=== PATIENT | female | born 1945 | race Caucasian/White ===

== ENCOUNTER 2022-11-12 07:39 | Inpatient (IN) ==
--- NOTE | 2022-10-06 12:05 | PAT Medication Instructions ---
Medication Instructions Date of Service October 06, 2022 Home Medications duloxetine 30 mg capsule,delayed release 30 mg PO QPM evolocumab 140 mg/mL subcutaneous pen injector (Repatha SureClick) 140 mg subcut UD fluticasone furoate 100 mcg-vilanterol 25 mcg/dose inhalation powder (Breo El lipta) 1 inh inhalation QPM gabapentin 100 mg capsule 100 mg PO HS metoprolol tartrate 25 mg tablet 12.5 mg PO QAM metoprolol tartrate 25 mg tablet 25 mg PO HS prasugrel 10 mg tablet 10 mg PO QAM ASK your surgeon for instructions evolocumab 140 mg/mL subcutaneous pen injector (Repatha SureClick) 140 mg subcut UD prasugrel 10 mg tablet 10 mg PO QAM Take morning of surgery With a small sip of water, OTHERWISE NOTHING TO EAT OR DRINK AFTER MIDNIGHT: metoprolol tartrate 25 mg tablet 12.5 mg PO QAM Take evening before surgery duloxetine 30 mg capsule,delayed release 30 mg PO QPM fluticasone furoate 100 mcg-vilanterol 25 mcg/dose inhalation powder (Breo Ellipta) 1 inh inhalation QPM gabapentin 100 mg capsule 100 mg PO HS metoprolol tartrate 25 mg tablet 25 mg PO HS Other Notes If you have any questions please call us at [phone] or [phone] or [phone] or [phone]
--- NOTE | 2022-10-10 13:18 | Anesthesiology Consultation ---
Date of Service October 10, 2022 Assessment & Plan (1) Encounter for pre-operative examination: - will request most recent cardiology records including available testing. Dr. 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 Patient was contacted by myself and states she sees [facility] cardiology, Dr. Haywood. Noted abnormal 2020 stress echo. - PONV: pt reports having received scop patch in the past. To anesthesiologist determination if scop patch is acceptable for patient DOS. Chart Review Chart Review: Pending: Refer to Additional Notes / Consult section and Patient seen in Pre Admission Testing Teaching & Discussion Pre-Anesthesia Teaching/Discussion Notes: Instructed NPO after midnight before surgery, except medications with 15 cc of water. Medication instructions provided according to the PAT guidelines. History Surgery Operation Date: 11/12/22 09:50 Proposed Procedures p Aortogram with Aortic and Iliac Stenting - Alex Santos MD Height/Weight Height: 5 ft 2 in Weight: 63.9 kg Allergies Allergy/AdvReac Type Severity Reaction Status Date / Time aspirin Allergy Intermediate Hives Verified 10/02/22 13:53 codeine Allergy Intermediate hyperventilate, Verified 10/02/22 13:53 "cant get my breath" Medications Home Medications Medication Instructions Recorded Confirmed Last Taken duloxetine 30 mg capsule,delayed 30 mg PO QPM 10/02/22 10/02/22 Unknown release evolocumab 140 mg/mL subcutaneous 140 mg subcut UD 10/02/22 10/02/22 Unknown pen injector (Repatha SureClick) fluticasone furoate 100 1 inh inhalation QPM 10/02/22 10/02/22 Unknown mcg-vilanterol 25 mcg/dose inhalation powder (Breo Ellipta) gabapentin 100 mg capsule 100 mg PO HS 10/02/22 10/02/22 Unknown metoprolol tartrate 25 mg tablet 12.5 mg PO QAM 10/02/22 10/02/22 Unknown metoprolol tartrate 25 mg tablet 25 mg PO HS 10/02/22 10/02/22 Unknown prasugrel 10 mg tablet 10 mg PO QAM 10/02/22 10/02/22 Unknown Past Medical History Medical History (Updated 10/10/22 @ 13:21 by Liana Perea PA-C) Anemia Atrial fibrillation follows with Dr. Agueda Pelaez with [facility] CAD (coronary artery disease) s/p 3 stents, most recent more than 2 yrs ago Chronic back pain Chronic obstructive pulmonary disease controlled, stable per pt; maintenance inhaler, denies any recent albuterol inhaler use History of blood transfusion History of COVID-19 03/2022--mild symptoms, denies hospitalization, no symptoms now Hypertension controlled, stable per pt Nausea and vomiting after administration of anesthetic agent pt believes did have scop patch in the past in combination with IV medication Pulmonary embolism after knee surgery---reason for prasugrel Patient denies h/o stroke, seizures, heart attack, heart failure, or DM. Exercise / Class Metabolic Activity III < 4 Walking/Shop/Light housework (denies chest discomfort or shortness of breath with usual activities) Past Family History Family History Other No family history of adverse response to anesthesia Past Surgical History Surgical History History of benign breast biopsy History of bilateral carpal tunnel release History of bilateral cataract extraction History of cardiac cath x2--last was at least 3yrs--all at [facility] History of cholecystectomy History of colonoscopy History of esophagogastroduodenoscopy (EGD) History of foot surgery right History of heart artery stent x3 total--1 placed years ago, 2 placed last pt unsure when states at least 3+yrs ago was last time History of lumbar discectomy History of right knee surgery History of tonsillectomy and adenoidectomy History of tooth extraction History of total hysterectomy with bilateral salpingo-oophorectomy (BSO) Past Anesthesia History No Hx of Anesthesia Complications and No Family Hx of Anesthesia Complications History of PONV History of PONV (has received scop patch in the past in combination with IV medication) and Hx of Motion Sickness Social History Smoking Status: Current every day smoker tobacco type: cigarettes Smoking cigarettes per day: 10 a day (advised) Do You Dip or Chew Tobacco: No Hx Alcohol Use: Yes Alcohol type: wine alcohol intake frequency: 0-2 drinks per day Hx Substance Use: No substance use type: does not use Review of Systems Snoring, denies witnessed apneas. Patient denies chest pain, shortness of breath, dyspnea on exertion, reflux, fever, chills, cough, wheezing, or palpitations. Physical Exam Vital Signs Vitals BP 114/78 manual L arm P 58 TEMP 98 SP02 96% on RA RESP 17 Physical Full cervical extension range of motion without pain TMD 3.5 finger breadths Mallampati Score 2 Dentition: implant front left upper, denies chipped or loose teeth, caps/crowns, or bridges Lungs: normal respiratory effort. Good air movement, clear throughout to auscultation, no adventitious breath sounds Cardiac: regular rate and rhythm, no murmurs noted Carotid arteries: negative bruit bilat Lab Results Anesthesia Preop Results Results Anesthesia Widget: WBC 8.38 K/ul (4.8-10.8) 10/10/22 Hgb 15.4 g/dl (12.0-16.0) 10/10/22 Hct 45.2 % (37.0-47.0) 10/10/22 Plt 251 K/uL (130-400) 10/10/22 Na 136 mmol/L (136-145) 10/10/22 K 4.9 mmol/L (3.5-5.1) 10/10/22 Cl 101 mmol/L (98-107) 10/10/22 CO2 28 mmol/L (21-32) 10/10/22 BUN 5 mg/dl (6-23) L 10/10/22 Creat 0.68 mg/dl (0.6-1.2) 10/10/22 Glucose Level 114 mg/dl (70-99(Fasting)) H 10/10/22 PT 11.0 Seconds (9.0-12.0) 10/10/22 PTT 26.2 Seconds (21.0-31.0) 10/10/22 INR 1.0 (0.9-1.1) 10/10/22 Blood Type O Negative 10/10/22 Antibody Screen POSITIVE A 10/10/22 Testing Laboratory Results July with blood bank advised nothing additional is needed from pt or PAT regarding positive antibody screen. Electrocardiogram Date: 10/10/22 Sinus bradycardia, rate 55 bpm Rightward axis Cannot rule out anterior infarct, age undetermined Chest X-Ray Date: 10/10/22 No acute process Echocardiogram Date: 05/09/22 EF 50-55% Mild to moderate mitral regurgitation ARGELIA closure device Watchman with no device related thrombus or peridevice leak Stress Test Date: 10/22/19 MPHR 48% Moderate sized, moderate intensity perfusion abnormality in the mid to apical anterior and anteroseptal wall with reversibility, consistent with ischemia in the LAD coronary artery distribution Other Testing Aorta with runoff CTA 09/16/22 1. Focal area of stenosis within the distal abdominal aorta of up to 75% due to the calcified plaque. 2. Focal area of high-grade stenosis within the proximal right common iliac artery of likely greater than 90% due to the calcified plaque. 3. Mild multifocal narrowing within the right common femoral, superficial femoral, and right popliteal arteries. 4. The distal right anterior tibial and dorsalis pedis arteries are not opacified and likely occluded. 5. The distal left posterior tibial artery is not opacified and likely occluded. 6. Additional findings as described above. COVID-19 Risk Screen Screening Information COVID-19 Screen Date: 10/10/22 Exposure 21 Days Family/Household +COVID Last 21 Days: No Exposure 10 Days Any COVID Exposure Last 10 Days: No Symptoms Last 10 Days Experienced COVID Sx Last 10 Days: No + COVID 0-90 Days COVID + in Last 0-90 Days: No
[~2022-11-12 07:39] MED LIST: LR 15ML/HR IV SCH; ceFAZolin 2000MG 2,000 MG/15 ML SYR IV SCH
--- NOTE | 2022-11-12 08:12 | History & Physical Report ---
Date of Service November 12, 2022 History of Present Illness Primary Care Provider: Grant Mcfadden Reason for Consultation Right upper extremity vascular occlusive disease and lower extremity right leg claudication History of Present Illness I the pleasure of seeing Devora today for evaluation of her arterial system. As you know she is a 76-year-old female who has complaints of both upper and lower extremities. She claims that her right hand occasionally gets purplish in the fingers. This has not happened over the last few weeks. She denies any ulcerations of the right hand. She is right-handed. She denies any effort discomfort with use of the right upper extremity. She has had episodes where she gets tingly, cold, and passes out. This also has not occurred recently. She claims that she did go on antibiotics for mastoiditis which helped with this problem. She does claim that her pulses in her right arm have been difficult to feel for extended period of time. She denies any symptoms consistent with cerebrovascular accidents. She does also complain of right leg pain. This occurs both at rest and while walking however the pain she gets when walking is different than the one at rest. She is claims she does not walk far distances before her lower extremity hurts. She does point to the calf is being replaced this starts but involves the whole leg. She denies any ulcerations of the lower extremities. She denies any pain in her left lower extremity. She does have a chronic history of smoking and continues to smoke. She does have a history of hypertension and coronary artery disease with requiring 3 stents. Review of Systems 10 systems were reviewed. Positive findings included occasional chest pain and irregular heartbeat COPD joint swelling loss of appetite and diarrhea and urinary incontinence. She does have a history of 3 coronary stents in the past. She also has a history of mild carotid artery occlusive disease. Physical Exam Vitals & Measurements HR: 72 (Monitored) BP: 122/76 SpO2: 72% WT: 62.800 kg (Dosing) WT: 62.8 kg Input and Output - Last 24 hours (Last 8 hours) No I/O Data Found: On exam the patient is awake alert and oriented x3. She is in no apparent distress. Her blood pressure is 158/78 on the left and 122/76 on the right arm. Radials are +2 on the left and nonpalpable on the right. Capillary refill is equal in both upper extremities. There is no ulcerations of the hand and fingers of either upper extremity. I cannot appreciate any carotid bruits on exam. Her heart had a regular rate and rhythm. Abdominal exam was benign without any abnormal dilatation of the aorta. Femoral pulses 1+ on the right 2+ on the left. The left pedal pulses are palpable and normal. Right pedal pulse palpable. Neurologic exam is normal to motor and sensory fu nction. Diagnostic Results CT angiogram which was done in June showed mild stenosis of the brachiocephalic trunk as well as the right common carotid artery. Assessment/Plan Claudication, intermittent At this point is recommended stenting of both the aortic lesion and iliac lesion. Required placed kissing stents in both iliac arteries at the origin of the right, asymptomatic. She understands the risks options and benefits of this approach and agrees with this procedure. We will keep you informed as to her results. Thank you very much for letting us participate in the care of this patient. Sincerely, Isi Santos MD Allergies Allergy/AdvReac Type Severity Reaction Status Date / Time aspirin Allergy Intermediate Hives Verified 10/02/22 13:53 codeine Allergy Intermediate hyperventilate, Verified 10/02/22 13:53 "cant get my breath" clopidogrel [From Plavix] Allergy Rash Verified 11/09/22 10:21 Home Medications Medication Instructions Recorded Confirmed Type duloxetine 30 mg capsule,delayed 30 mg PO QPM 10/02/22 10/02/22 History release evolocumab 140 mg/mL subcutaneous 140 mg subcut UD 10/02/22 10/02/22 History pen injector (Gilda Dale) fluticasone furoate 100 1 inh inhalation QPM 10/02/22 10/02/22 History mcg-vilanterol 25 mcg/dose inhalation powder (Breo Ellipta) gabapentin 100 mg capsule 100 mg PO HS 10/02/22 10/02/22 History metoprolol tartrate 25 mg tablet 12.5 mg PO QAM 10/02/22 10/02/22 History metoprolol tartrate 25 mg tablet 25 mg PO HS 10/02/22 10/02/22 History prasugrel 10 mg tablet 10 mg PO QAM 10/02/22 10/02/22 History Past Med/Surg History Medical History (Updated 10/10/22 @ 13:21 by Liana M. Onink, PA-C) Anemia Atrial fibrillation follows with Dr. Agueda Pelaez with [facility] CAD (coronary artery disease) s/p 3 stents, most recent more than 2 yrs ago Chronic back pain Chronic obstructive pulmonary disease controlled, stable per pt; maintenance inhaler, denies any recent albuterol inhaler use History of blood transfusion History of COVID-19 03/2022--mild symptoms, denies hospitalization, no symptoms now Hypertension controlled, stable per pt Nausea and vomiting after administration of anesthetic agent pt believes did have scop patch in the past in combination with IV medication Pulmonary embolism after knee surgery---reason for prasugrel Surgical History History of benign breast biopsy History of bilateral carpal tunnel release History of bilateral cataract extraction History of cardiac cath x2--last was at least 3yrs--all at [facility] History of cholecystectomy History of colonoscopy History of esophagogastroduodenoscopy (EGD) History of foot surgery right History of heart artery stent x3 total--1 placed years ago, 2 placed last pt unsure when states at least 3+yrs ago was last time History of lumbar discectomy History of right knee surgery History of tonsillectomy and adenoidectomy History of tooth extraction History of total hysterectomy with bilateral salpingo-oophorectomy (BSO) Family History Other No family history of adverse response to anesthesia Social History Smoking Status: Current every day smoker Cigarettes Per Day: 10 a day (advised); Second Hand Exposure: No; Do You Dip or Chew Tobacco: No; Tobacco Cessation Education Requested by Patient: No Hx Alcohol Use: Yes Alcohol type: wine Hx Substance Use: No Preferred Language: Danish Communication Ability: Effective Mobile Disc Jockey Required: No Beliefs That Will Affect Care: None Current Living Situation: Alone Current Living Situation Comment: lives in apartment underneath daughter/son in law Other Information That Helps Us Care for You: No Feels Safe at Home: Yes Safety Concerns: Feels Safe At This Time Assistive Devices: Glasses Assistive Devices Comment: reading glasses
[2022-11-12] MEDS ORDERED: fentaNYL citrate PF 100 MCG/2 ML VIAL ONE (08:32)
[2022-11-12] MEDS ORDERED: ONDANSETRON INJ 2 MG/ML 2 ML VIAL IV PRN (09:13)
[2022-11-12] MEDS ORDERED: fentaNYL citrate PF 100 MCG/2 ML VIAL IV PRN (09:13)
[2022-11-12] MEDS ORDERED: ATROPINE SULFATE 0.1 MG/ML 10ML SYR IV PRN (09:13)
[2022-11-12] MEDS ORDERED: HYDROmorphone INJ 2 MG/ML SYR/VIAL IV PRN (09:13)
[2022-11-12] MEDS ORDERED: ePHEDrine sulfate 50 MG/ML AMP IV PRN (09:13)
[2022-11-12] MEDS ORDERED: SCOPOLAMINE 1 MG TDSY TD ONE (09:51)
[2022-11-12] MEDS ORDERED: ONDANSETRON INJ 2 MG/ML 2 ML VIAL ONE (11:22)
[2022-11-12] MEDS ORDERED: ePHEDrine sulfate 50 MG/ML AMP ONE (11:22)
[2022-11-12] MEDS ORDERED: DEXAMETHASONE SOD INJ 4 MG/ML VIAL ONE (11:22)
[2022-11-12] MEDS ORDERED: PROPOFOL IV EMULSION 10 MG/ML 20 ML VIAL IV ONE (11:22)
[2022-11-12] MEDS ORDERED: HEPARIN SOD (PORCINE) 1000 UNIT/ML ONE ×2 (12:07→13:29)
[2022-11-12] MEDS: VISIPAQUE IV PRN ×2 (12:32→12:33)
[2022-11-12] MEDS ORDERED: ceFAZolin 330 MG/ML 1 GM VIAL ONE (12:39)
[2022-11-12] MEDS ORDERED: PAPAVERINE HCL INJ 30 MG/ML 2 ML VIAL ONE (12:39)
[2022-11-12] MEDS ORDERED: HEPARIN (PORCINE) 1000 UNIT/ML 10 ML (CATH LAB USE ONLY) ONE (12:39)
[2022-11-12] MEDS ORDERED: THROMBIN FOR SOLN 20000 UNIT KIT ONE (12:40)
[2022-11-12] MEDS ORDERED: GELATIN SPONGE SZ 100 ONE (12:40)
[2022-11-12] MEDS ORDERED: PROTAMINE SULFATE 10 MG/ML 5 ML VIAL IV ONE (13:29)
--- NOTE | 2022-11-12 14:01 | Post Operative Brief Note ---
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
--- NOTE | 2022-11-12 14:07 | Anesthesiology Progress Note ---
Date of Service November 12, 2022 Anesthesia Post Procedure Vital Signs Vital Signs: Temp Pulse Resp BP Pulse Ox O2 Del Method 11/12/22 08:22 Room Air 11/12/22 08:22 36.4 C L 54 L 20 176/88 H 96 Room Air Transfer of Care Handoff Completed per policy Notes Mental Status: alert / awake / arousable and participated in evaluation Patient Amnestic to Procedure: Yes Nausea / Vomiting: adequately controlled Pain: adequately controlled Airway Patency, RR, SpO2: stable & adequate BP & HR: stable & adequate Hydration State: stable & adequate Anesthetic Complications: no major complications apparent and Pt Satisfied with anesthetic care
[2022-11-12] MEDS ORDERED: MoRPHine SULFATE 4 MG/ML 1 ML CARP\\VIAL IV PRN (15:04)
[2022-11-12] MEDS: D5W AND 1/2NSS 1,000 ML IV SCH ×2 (15:15→22:50)
[2022-11-12 15:54] LABS: Hematocrit (blood only) 41.2 % (37.0-47.0); Hemoglobin 14.2 g/dl (12.0-16.0); Mean Corpuscular Hemoglobin 31.7 pg (25.0-34.0); Mean Corpuscular Hgb Conc 34.5 g/dL (32.0-36.0); Mean Platelet Volume 8.6 fL (9.4-12.4); Platelet Count 211 K/uL (130-400); RDW Coefficient of Variation 13.1 % (11.5-14.5); Red Blood Count 4.48 M/uL (4.20-5.40); White Blood Count 12.62 K/ul (4.8-10.8)
[2022-11-12] MEDS: oxyCODONE/ACETAMINOPHEN 5mg/325mg TAB PO PRN (16:26)
[2022-11-12 16:46] LABS: Basophils # (auto) 0.02 K/uL (0-0.2); Basophils % (auto) 0.2 %; Eosinophils # (auto) 0.02 K/uL (0-0.50); Eosinophils % (auto) 0.2 %; Immature Granulocytes # (auto) 0.11 K/uL (0.01-0.20); Immature Granulocytes % (auto) 0.9 %; Lymphocytes # (auto) 0.42 K/uL (1.2-3.4); Lymphocytes % (auto) 3.3 %; Monocytes % (auto) 0.8 %; Neutrophils # (auto) 11.95 K/uL (1.40-6.50); Neutrophils % (auto) 94.6 %
--- NOTE | 2022-11-12 19:46 | Critical Care Consultation ---
Date of Consultation November 12, 2022 Assessment & Plan (1) PAD (peripheral artery disease): (2) CAD (coronary artery disease): (3) Chronic obstructive pulmonary disease: (4) Hypertension: (5) Current smoker: Plan Reason Critically Ill: POD # -0 from bilateral aortic/iliac stenting with bilateral fem to fem bypass. Primary service- vascular Neuro - Acute pain from surgical procedure CAM ICU: NEGATIVE - Tiered pain control with gabapentin, Tylenol, Oxy/acetaminophen, Morphine Cardiac - PAD s/p bilateral aorto/iliac stenting and fem-fem bypass, HTN, HLD, HX CAD, HX PAF with watchman - wounds and incisions CDI with wound vac- distal pulses weak but palpable and dopllerable- extremities are warm and sensation is intact - Prasugrel per vascular - statin intolerant - Currently SB - Metoprolol with hold parameters ordered- follow (12.5 qam) Respiratory - COPD, active smoker - Continue with Breo ellipta- No PFTS available for review - GISSELLE if needed - Smoking cessation per primary service GI - No acute needs RENAL/LYTES - No acute needs - ICU electrolyte protocol - Anaya to gravity - remove likely in morning ENDO - No acute needs HEME - No acute needs ID - No evidence of infectious etiology at this time - follow LINES/IV ACCESS - PIV, Anaya Continue use of these lines DVT PROPHYLAXIS - Prasugrel - hold SCDS post surgical - Hold chemoprophy DISPO - ICU postoperative follow hemodynamics, frequent CV assessments BLE I have personally spent 35 minutes of critical care time in the direct management of this patient. This is a life/limb threatening event. This includes time spent evaluating patient, direct bedside care, chart review, placing orders, interpretation of diagnostic studies, discussion with consultants, patient, and family members, as well as other required patient management activities. This time is exclusive of all separately billable procedures, and separate from and in addition to any other critical care service time. Thank you for allowing us to participate in the care of this patient. Please refer to my attending physician's documentation for any further recommendations. History of Present Illness Reason for Consultation: S/P Bilateral Aortic and Iliac Stenting with bilateral Fem to Fem bypass Requesting Physician: Alex Santos MD Attending Physician: Alex Santos MD History of Present Illness 76 YOF with medical history of: Current smoker, PAD, mitral regurge, CAD with 3 stents to LAD (2 overlapping stents to the LAD), on other nonobstructive CAD, PAF- post watchman device November 2021, HLD. Patient is s/p bilateral Aortic/Iliac stenting and bilateral fem to fem bypass surgery by Dr. Santos under LMA and GA. She required some Ephedrine intraoperatively and with EBL of 150ml. Patient was evaluated in her ICU room, where she is awake, on 2LNC, tolerating liquids without n/v and pain is controlled. Her bilateral feet are warm, pulses weak but palpable and are dopplerable bilaterally. Wound Vacs in place. Sensation intact. CODE: FULL Allergies Allergy/AdvReac Type Severity Reaction Status Date / Time aspirin Allergy Intermediate Hives Verified 11/12/22 08:21 clopidogrel [From Plavix] Allergy Intermediate Rash Verified 11/12/22 08:21 codeine Allergy Intermediate hyperventilate, Verified 11/12/22 08:21 "cant get my breath" Home Medications Medication Instructions Recorded Confirmed Type duloxetine 30 mg capsule,delayed 30 mg PO QPM 10/02/22 11/12/22 History release (Cymbalta) evolocumab 140 mg/mL subcutaneous 140 mg subcut UD 10/02/22 11/12/22 History pen injector (Repatha SureClick) fluticasone furoate 100 1 inh inhalation QPM 10/02/22 11/12/22 History mcg-vilanterol 25 mcg/dose inhalation powder (Breo Ellipta) gabapentin 100 mg capsule 200 mg PO HS 10/02/22 11/12/22 History metoprolol tartrate 25 mg tablet 12.5 mg PO QAM 10/02/22 11/12/22 History metoprolol tartrate 25 mg tablet 25 mg PO HS 10/02/22 11/12/22 History prasugrel 10 mg tablet (Effient) 10 mg PO QAM 10/02/22 11/12/22 History Patient History Medical History (Updated 11/12/22 @ 19:37 by MURPHY Cortes) Anemia Atrial fibrillation follows with Dr. Agueda Pelaez with [facility] CAD (coronary artery disease) s/p 3 stents, most recent more than 2 yrs ago Chronic back pain Chronic obstructive pulmonary disease controlled, stable per pt; maintenance inhaler, denies any recent albuterol inhaler use History of blood transfusion History of COVID-19 03/2022--mild symptoms, denies hospitalization, no symptoms now Hypertension controlled, stable per pt Nausea and vomiting after administration of anesthetic agent pt believes did have scop patch in the past in combination with IV medication Pulmonary embolism after knee surgery---reason for prasugrel Surgical History History of benign breast biopsy History of bilateral carpal tunnel release History of bilateral cataract extraction History of cardiac cath x2--last was at least 3yrs--all at [facility] History of cholecystectomy History of colonoscopy History of esophagogastroduodenoscopy (EGD) History of foot surgery right History of heart artery stent x3 total--1 placed years ago, 2 placed last pt unsure when states at least 3+yrs ago was last time History of lumbar discectomy History of right knee surgery History of tonsillectomy and adenoidectomy History of tooth extraction History of total hysterectomy with bilateral salpingo-oophorectomy (BSO) Family History Other No family history of adverse response to anesthesia Social History Smoking Status: Current every day smoker Cigarettes Per Day: 10 a day (advised); Second Hand Exposure: No; Do You Dip or Chew Tobacco: No; Tobacco Cessation Education Requested by Patient: No Hx Alcohol Use: Yes Alcohol type: wine Hx Substance Use: No Preferred Language: Czech Communication Ability: Effective Electronic Warfare Officer Required: No Beliefs That Will Affect Care: None Current Living Situation: Alone Current Living Situation Comment: lives in apartment underneath daughter/son in law Other Information That Helps Us Care for You: No Feels Safe at Home: Yes Safety Concerns: Feels Safe At This Time Assistive Devices: Glasses Assistive Devices Comment: reading glasses Review of Systems Review of Systems: REVIEW OF SYSTEMS: Constitutional: No fever, sweats or chills Eyes: No diplopia, no worsening or blurred vision ENT: normal hearing, no trouble swallowing Respiratory: (+) smoker, cough, sputum, NO dyspnea at rest or on exertion Cardiovascular:(+) leg pain at rest an with activity, No chest pain, tightness or palpitations Abdomen: No pain, nausea, vomiting, diarrhea or constipation Musculoskeletal: No joint pain, calf pain, swelling Neurologic: No weakness, numbness/tingling, or balance problems Psychiatric: No anxiety or depression Skin: No rash or itch Physical Exam Physical Exam: PHYSICAL EXAM: General: awake, alert, no apparent distress, pain controlled Head: Normocephalic, atraumatic ENT: PERRLA, EOMI, no pharyngeal exudate, mucous membranes moist Neuro: AAO x 3, speech clear and appropriate, strength intact bilaterally 5/5, sensation intact and equal all extremities and dermatomes, no pronator drift Chest: equal rise and fall of the chest, no accessory muscle use, no heaves or thrills, decreased in bases with end expiratory wheeze Cardiac: Regular rate and rhythm, telemetry reviewed- SB-NSR, skin warm dry, cap refill <3 seconds, peripheral pulses +2 no JVD, Grade II systolic murmur with radiation to axillae, no edema GI: NABS x 4 quadrants, soft, nontender to palpation, no rebound, guarding or tenderness : Anaya to gravity draining cash colored urine Psych: Normal mood and affect Skin: bilateral groin incisions intact, Results & Data Results & Data Vital Signs (Past 12 Hours) Vital Signs Temp Pulse Pulse Pulse Resp BP BP 11/12/22 18:00 60 11/12/22 18:00 145/70 H 11/12/22 17:31 169/80 H 11/12/22 17:31 60 11 L 11/12/22 17:30 63 11 L 11/12/22 17:00 53 L 12 11/12/22 17:00 182/81 H 11/12/22 16:49 57 L 12 11/12/22 16:49 183/91 H 11/12/22 16:33 63 14 11/12/22 16:33 197/86 H 11/12/22 16:30 68 12 11/12/22 16:21 188/80 H 11/12/22 16:21 56 L 16 11/12/22 16:15 191/83 H 11/12/22 16:15 57 L 18 11/12/22 16:55 11/12/22 16:01 62 18 11/12/22 16:01 175/91 H 11/12/22 16:00 66 11/12/22 15:46 182/74 H 11/12/22 15:46 58 L 12 11/12/22 15:45 58 L 11/12/22 15:30 57 L 11/12/22 15:30 184/82 H 11/12/22 15:16 65 11/12/22 15:16 161/80 H 11/12/22 15:15 59 L 12 11/12/22 15:00 61 14 11/12/22 15:00 185/84 H 11/12/22 15:45 57 L 11/12/22 14:25 65 10 L 171/78 H 11/12/22 14:15 70 14 170/93 H 11/12/22 14:05 37.6 C H 77 10 L 155/60 H 11/12/22 08:22 11/12/22 08:22 36.4 C L 54 L 20 176/88 H Pulse Ox O2 Del Method O2 Flow Rate 11/12/22 18:00 11/12/22 18:00 11/12/22 17:31 11/12/22 17:31 11/12/22 17:30 98 Nasal Cannula 2 11/12/22 17:00 97 Nasal Cannula 2 11/12/22 17:00 11/12/22 16:49 96 Nasal Cannula 2 11/12/22 16:49 11/12/22 16:33 96 Nasal Cannula 2 11/12/22 16:33 11/12/22 16:30 98 Nasal Cannula 2 11/12/22 16:21 11/12/22 16:21 11/12/22 16:15 11/12/22 16:15 96 Nasal Cannula 2 11/12/22 16:55 Nasal Cannula 2 11/12/22 16:01 90 Room Air 11/12/22 16:01 11/12/22 16:00 91 Room Air 11/12/22 15:46 11/12/22 15:46 95 Nasal Cannula 2 11/12/22 15:45 94 Nasal Cannula 2 11/12/22 15:30 94 Nasal Cannula 2 11/12/22 15:30 11/12/22 15:16 95 Nasal Cannula 2 11/12/22 15:16 11/12/22 15:15 95 Nasal Cannula 2 11/12/22 15:00 92 Nasal Cannula 2 11/12/22 15:00 11/12/22 15:45 11/12/22 14:25 94 Nasal Cannula 2 11/12/22 14:15 93 Nasal Cannula 2 11/12/22 14:05 96 Nasal Cannula 4 11/12/22 08:22 Room Air 11/12/22 08:22 96 Room Air Laboratory Results Abnormal lab results 11/12/22 11/12/22 11/12/22 Range/Units 07:54 15:12 15:17 WBC 12.62 H (4.8-10.8) K/ul MPV 8.6 L (9.4-12.4) fL Neut # (Auto) 11.95 H (1.40-6.50) K/uL Lymph # (Auto) 0.42 L (1.2-3.4) K/uL [place] # (Auto) 0.10 L (0.11-0.59) K/uL POC Glucose 184 H (70-99) mg/dl Antibody Screen POSITIVE A Crossmatch See Detail Medications Administered Lactated Ringer's (Lr) 1,000 mls @ 15 mls/hr IV .Q24H CHRISTINE Stop: 11/13/22 05:59 Last Admin: 11/12/22 08:13 Dose: Not Given Documented By: MARYJANE Dextrose/Sodium Chloride (D5w And 1/2nss) 1,000 mls @ 125 mls/hr IV .Q8H CHRISTINE Stop: 12/12/22 15:03 Last Admin: 11/12/22 15:15 Dose: 125 mls/hr Documented By: PNATERA Miscellaneous (Evolocumab [Repatha Sureclick] 140 Mg/Ml Pen Injector - Order Awaiting Action) 1 each N/A QS CHRISTINE Stop: 12/12/22 15:59 Last Admin: 11/12/22 16:27 Dose: Not Given Documented By: PANTERA Oxycodone/Acetaminophen (Oxycodone/Acetaminophen 5mg/325mg Tab) 1 - 2 tab PO Q4H PRN PRN Reason: Pain (Scale 3,4,5,6) Stop: 11/26/22 15:03 Last Admin: 11/12/22 16:26 Dose: 2 tab Documented By: PANTERA Discontinued Medications Cefazolin Sodium (Cefazolin 330 Mg/Ml 1 Gm Vial) Confirm Administered Dose 990 mg .ROUTE .STK-MED ONE Stop: 11/12/22 12:40 Last Admin: 11/12/22 13:40 Dose: 990 mg Documented By: DEBBY Gelatin (Gelatin Sponge Sz 100) Confirm Administered Dose 2 each .ROUTE .STK-MED ONE Stop: 11/12/22 12:41 Last Admin: 11/12/22 13:38 Dose: 1 each Documented By: DEBBY Heparin Sodium (Porcine) (Heparin (Porcine) 1000 Unit/Ml 10 Ml (Sole Leveler Use Only)) Confirm Administered Dose 10,000 units .ROUTE .STK-MED ONE Stop: 11/12/22 12:40 Last Admin: 11/12/22 13:40 Dose: 5,000 units Documented By: DEBBY Heparin Sodium/Sodium Chloride (Heparin In Nss Infusion 1000 Unit/500 Ml (2 U/Ml) Bag) Confirm Administered Dose 2,000 units IV .STK-MED ONE Stop: 11/12/22 10:56 Last Admin: 11/12/22 12:31 Dose: 300 units Documented By: DEBBY Cefazolin Sodium (Ancef 2000mg) 2,000 mg in 15 mls @ 3.75 mls/min IV PREOP CHRISTINE; Protocol Stop: 11/12/22 18:00 Last Admin: 11/12/22 10:59 Dose: 3.75 mls/min Documented By: [id number] Lactated Ringer's (Lr) 1,000 mls @ 80 mls/hr IV .[id number] CHRISTINE Stop: 11/12/22 18:29 Last Infusion: 11/12/22 10:46 Dose: 0 mls/hr Documented By: Admin: 11/12/22 08:20 Dose: 100 mls/hr Documented By: MARYJANE Iodixanol (Visipaque) 199 ml IV UD PRN PRN Reason: Interaction Checking Stop: 11/16/22 12:31 Last Admin: 11/12/22 12:33 Dose: 199 ml Documented By: Admin: 11/12/22 12:32 Dose: 199 ml Documented By: DEBBY Papaverine HCl (Papaverine Hcl Inj 30 Mg/Ml 2 Ml Vial) Confirm Administered Dose 30 mg .ROUTE .STK-MED ONE Stop: 11/12/22 12:40 Last Admin: 11/12/22 13:33 Dose: Not Given Documented By: ED Thrombin (Thrombin For Soln 73849 Unit Kit) Confirm Administered Dose 40,000 units .ROUTE .STK-MED ONE Stop: 11/12/22 12:41 Last Admin: 11/12/22 13:39 Dose: 5,000 units Documented By: DEBBY Coding Level of Care Code 36580 CRITICAL CARE 1ST 30-74M Diagnoses PAD (peripheral artery disease) I73.9 CAD (coronary artery disease) I25.10 Chronic obstructive pulmonary disease J44.9 Hypertension I10 Current smoker F17.200
[2022-11-12] MEDS: ceFAZolin 2000MG 2,000 MG/15 ML SYR IV SCH (21:10)
[2022-11-12] MEDS: METOPROLOL TARTRATE 25 MG TAB PO SCH (21:10)
[2022-11-12] MEDS: DULoxetine HCL 30 MG CAP PO SCH (21:10)
[2022-11-12] MEDS: FLUTICASONE/VILANTEROL 100/25MCG 14 PUFFS/INHALER INH SCH (21:11)
[2022-11-12] MEDS: GABAPENTIN 100 MG CAP PO SCH (21:11)
[2022-11-13] MEDS: MAGNESIUM SULFATE / D5W 1 GM/100 ML BAG IV SCH ×2 (00:26→02:40)
[2022-11-13] MEDS ORDERED: METOPROLOL TARTRATE 1 MG/ML VIAL IV PRN (00:50)
[2022-11-13 05:02] LABS: Basophils # (auto) 0.01 K/uL (0-0.2); Basophils % (auto) 0.1 %; Hematocrit (blood only) 38.5 % (37.0-47.0); Hemoglobin 13.1 g/dl (12.0-16.0); Immature Granulocytes # (auto) 0.08 K/uL (0.01-0.20); Immature Granulocytes % (auto) 0.5 %; Lymphocytes # (auto) 1.23 K/uL (1.2-3.4); Mean Corpuscular Hemoglobin 31.6 pg (25.0-34.0); Mean Platelet Volume 8.5 fL (9.4-12.4); Monocytes # (auto) 1.39 K/uL (0.11-0.59); Monocytes % (auto) 7.9 %; Neutrophils # (auto) 14.93 K/uL (1.40-6.50); Neutrophils % (auto) 84.5 %; Platelet Count 223 K/uL (130-400); Red Blood Count 4.14 M/uL (4.20-5.40); White Blood Count 17.64 K/ul (4.8-10.8)
[2022-11-13 05:19] LABS: BUN Creatinine Ratio 4.8 (10-20); Creatinine Clr Calc Pharmacy 67.6 ml/min; Est GFR (African American) 101.5 ml/min; Est GFR (Non-African American) 87.6 ml/min; Potassium 4.7 mmol/L (3.5-5.1)
[2022-11-13] MEDS: ceFAZolin 2000MG 2,000 MG/15 ML SYR IV SCH (05:28)
[2022-11-13] MEDS: D5W AND 1/2NSS 1,000 ML IV SCH (06:47)
[2022-11-13] MEDS: METOPROLOL TARTRATE 25 MG TAB PO SCH ×2 (09:16→21:18)
[2022-11-13] MEDS: PRASugrel TAB 10 MG TAB PO SCH (09:16)
--- NOTE | 2022-11-13 10:49 | Critical Care Progress Note ---
Date of Service November 13, 2022 Assessment & Plan (1) Current smoker: Plan: The patient is doing well after her bilateral iliac stents and femorofemoral bypass for right leg claudication. She has tolerated the procedure very well. She had a brief run of atrial fibrillation last night but does have a history of paroxysmal atrial fibrillation and is status post a watchman's procedure. She then converted to sinus rhythm early this morning and has remained in sinus rhythm since. Her A-line and Anaya will be removed. She was a started on a diet. She is denying any discomfort. 1. Neuro psych: The patient is resumed on her nocturnal Neurontin. She is also resumed on Cymbalta. She is written for pain medications but hopefully she can just use some Tylenol. 2. Cardiovascular: Brief run of atrial fibrillation which was self-limited and back in sinus rhythm. She had a successful revascularization. Vascular surgery is aware of the absent posterior tibial dopplerable pulse on the left. But her feet are bilaterally warm and dry and without any pain and is able to move them. She just has a history of bilateral pulmonary embolism after a knee surgery 7 years ago. It is recommended that she be on DVT prophylaxis while she is less mobile. But she did have an EBL of 150 mL so we will defer to surgery whether or not that chemical DVT prophylaxis is desirable especially if she is going to be getting out of bed to a chair. She remains on her metoprolol 12 point 5 in the morning and 20 5 at night. 3. She is still requiring low-level supplemental oxygen we will try to have her cough and deep breathing get her out of bed for proper pulmonary hygiene. She is still a current smoker and some of that hypoxemia may be longstanding. We spoke about smoking cessation and she is hopeful to stop. She remains on her Breo Ellipta. 4. GI. The patient is on a cardiac diet and is tolerating that well. 5. Renal: Slight hyponatremia and will follow. If she reverts back to A-fib we may want to check magnesium and phosphate. 6. ID: The patient completed her periprocedure antibiotics. We will follow white count and check a urinalysis. Preop chest x-ray was without any pneumonia. 7. Heme: The patient's hematocrit and platelets are within normal limits as is her INR preop. We will just follow her elevated white count. 8. Endocrine: Slight elevation in her glucose and will will follow to see whether or not she needs a sliding scale. Outpatient assessment for hemoglobin A1c would be recommended. She will be downgraded likely this afternoon to be able to go to surgical floor. (2) PAD (peripheral artery disease): Admission and Anticipated Discharge Date Admission Date: November 12, 2022 Subjective The patient is doing extremely well after her bilateral iliac stenting and femorofemoral bypass. She is not having any numbness or pain or burning in either of her legs. She has no pain. No nausea vomiting or diarrhea. No shortness of breath or chest discomfort. Physical Exam Physical Exam: The patient is a yunior 76-year-old woman who is in no acute distress. She is awake alert and interactive and able to give a full history and physical. Neck is supple with adenopathy or thyromegaly head is normal atraumatic extraocular muscles intact pupils equal round reactive sclera nonicteric. Lungs are clear auscultation bilaterally heart is regular rate and rhythm without murmurs rubs or gallops abdomen is soft nontender without paraspinal megaly. Extremities are warm and dry bilaterally without any lesions. There are bilateral groin wound vacs which are functional. Dopplerable DP pulses bilaterally and posterior tibial on the right but absent on the left. Results & Data Results & Data Vital Signs (Past 12 Hours) Vital Signs Pulse Resp BP Pulse Ox O2 Del Method O2 Flow Rate 11/13/22 08:00 65 15 88 L 11/13/22 08:00 121/79 11/13/22 07:00 50 L 15 97 11/13/22 07:00 131/67 11/13/22 06:45 50 L 10 L 99 11/13/22 08:31 Nasal Cannula 2 11/13/22 08:00 50 L 11/13/22 06:00 50 L 10 L 98 11/13/22 06:00 129/68 11/13/22 05:00 51 L 10 L 97 11/13/22 05:00 115/65 11/13/22 04:00 50 L 11 L 94 11/13/22 04:00 116/57 L 11/13/22 03:00 53 L 11 L 97 11/13/22 03:00 108/56 L 11/13/22 02:06 53 L 11 L 99 11/13/22 01:00 113 H 17 95 07/27/23 01:00 126/71 11/13/22 00:25 127 H 10 L 96 11/13/22 00:25 119/76 11/13/22 00:00 112 H 11 L 95 11/13/22 00:00 115/79 11/13/22 01:34 52 L 11/12/22 23:00 52 L 11 L 97 11/13/22 00:20 119 H 11/12/22 23:45 52 L 11/12/22 23:59 Nasal Cannula 2 Laboratory Results Laboratory Results WBC 17.64 K/ul (4.8-10.8) H 11/13/22 04:42 RBC 4.14 M/uL (4.20-5.40) L 11/13/22 04:42 Hgb 13.1 g/dl (12.0-16.0) 11/13/22 04:42 Hct 38.5 % (37.0-47.0) 11/13/22 04:42 MCV 93.0 fL (80.0-100.0) 11/13/22 04:42 MCH 31.6 pg (25.0-34.0) 11/13/22 04:42 MCHC 34.0 g/dL (32.0-36.0) 11/13/22 04:42 RDW Std Deviation 44.0 fL (36.4-46.3) 11/13/22 04:42 RDW Coeff of Mickie 13.0 % (11.5-14.5) 11/13/22 04:42 Plt Count 223 K/uL (130-400) 11/13/22 04:42 MPV 8.5 fL (9.4-12.4) L 11/13/22 04:42 Immature Gran % (Auto) 0.5 % 11/13/22 04:42 Neut % (Auto) 84.5 % 11/13/22 04:42 Lymph % (Auto) 7.0 % 11/13/22 04:42 [place] % (Auto) 7.9 % 11/13/22 04:42 Eos % (Auto) 0.0 % 11/13/22 04:42 Baso % (Auto) 0.1 % 11/13/22 04:42 Neut # (Auto) 14.93 K/uL (1.40-6.50) H 11/13/22 04:42 Lymph # (Auto) 1.23 K/uL (1.2-3.4) 11/13/22 04:42 [place] # (Auto) 1.39 K/uL (0.11-0.59) H 11/13/22 04:42 Eos # (Auto) 0.00 K/uL (0-0.50) 11/13/22 04:42 Baso # (Auto) 0.01 K/uL (0-0.2) 11/13/22 04:42 Immature Gran # (Auto) 0.08 K/uL (0.01-0.20) 11/13/22 04:42 Sodium 132 mmol/L (136-145) L 11/13/22 04:42 Potassium 4.7 mmol/L (3.5-5.1) 11/13/22 04:42 Chloride 99 mmol/L (98-107) 11/13/22 04:42 Carbon Dioxide 28 mmol/L (21-32) 11/13/22 04:42 Anion Gap 5 (3-11) 11/13/22 04:42 BUN 3 mg/dl (6-23) L 11/13/22 04:42 Creatinine 0.62 mg/dl (0.6-1.2) 11/13/22 04:42 Est Cr Clr Drug Dosing 67.6 ml/min 11/13/22 04:42 Est GFR ( Amer) 101.5 ml/min 11/13/22 04:42 Est GFR (Non-Af Amer) 87.6 ml/min 11/13/22 04:42 BUN/Creatinine Ratio 4.8 (10-20) L 11/13/22 04:42 Glucose 157 mg/dl (70-99(Fasting)) H 11/13/22 04:42 POC Glucose 184 mg/dl (70-99) H 11/12/22 15:17 Calcium 8.0 mg/dl (8.6-10.3) L 11/13/22 04:42 Nasal Screen MRSA (PCR) Negative (Negative) 11/12/22 Unknown Blood Type O Negative 11/12/22 07:54 Antibody Screen POSITIVE A 11/12/22 07:54 Antibody Identification Anti-D 11/12/22 07:54 Antibody ID Comment 11/12/22 07:54 Crossmatch See Detail 11/12/22 07:54 Medications Administered Current Inpatient Medications Duloxetine HCl (Duloxetine Hcl 30 Mg Cap) 30 mg PO QPM [facility] Stop: 12/12/22 20:59 Last Admin: 11/12/22 21:10 Dose: 30 mg Fluticasone/Vilanterol (Fluticasone/Vilanterol 100/25mcg 14 Puffs/Inhaler) 1 puffs INH QPM [facility] Stop: 12/12/22 20:59 Last Admin: 11/12/22 21:11 Dose: 1 puffs Gabapentin (Gabapentin 100 Mg Cap) 200 mg PO HS [facility] Stop: 12/12/22 20:59 Last Admin: 11/12/22 21:11 Dose: 200 mg Metoprolol Tartrate (Metoprolol Tartrate 25 Mg Tab) 12.5 mg PO QAM [facility] Stop: 12/13/22 08:59 Last Admin: 11/13/22 09:16 Dose: 12.5 mg Metoprolol Tartrate (Metoprolol Tartrate 25 Mg Tab) 25 mg PO [facility] Stop: 12/12/22 20:59 Last Admin: 11/12/22 21:10 Dose: 25 mg Metoprolol Tartrate (Metoprolol Tartrate 1 Mg/Ml Vial) 5 mg IV Q4 PRN PRN Reason: Tachycardia HR >120 sustained Stop: 12/13/22 03:59 Miscellaneous (Evolocumab [Repatha Sureclick] 140 Mg/Ml Pen Injector - Order Awaiting Action) 1 each N/A QS [facility] Stop: 12/12/22 15:59 Last Admin: 11/13/22 09:37 Dose: Not Given Morphine Sulfate (Morphine Sulfate 4 Mg/Ml 1 Ml Carp\Vial) 1 - 4 mg IV Q2H PRN PRN Reason: Severe Pain (Scale 7, 8, 9,10) Stop: 11/26/22 15:03 Oxycodone/Acetaminophen (Oxycodone/Acetaminophen 5mg/325mg Tab) 1 - 2 tab PO Q4H PRN PRN Reason: Pain (Scale 3,4,5,6) Stop: 11/26/22 15:03 Last Admin: 11/12/22 16:26 Dose: 2 tab Prasugrel (Prasugrel Tab 10 Mg Tab) 10 mg PO QAM [facility] Stop: 12/13/22 08:59 Last Admin: 11/13/22 09:16 Dose: 10 mg Coding Level of Care Code 91083 SUB INP/OBS CARE 2/35MIN History Problem Focused Exam Problem Focused Medical Decision Making Moderate Complexity Diagnoses Current smoker F17.200 PAD (peripheral artery disease) I73.9 Time Spent (min) 35
--- NOTE | 2022-11-13 12:46 | Surgery Progress Note ---
Date of Service November 13, 2022 Assessment & Plan (1) Aortoiliac occlusive disease: Plan: This patient is postoperative day 1 for aortic stenting left iliac stenting and a femorofemoral bypass left to right. She is doing exceptionally well. She has has no discomfort in either foot and good pulses in her feet. At this point we will transfer to a floor and start PT OT. Admission and Anticipated Discharge Date Admission Date: November 12, 2022 Subjective This patient is awake alert. She is in no apparent distress. She claims her feet feel much better. She was up in the chair earlier today without difficulty. She is having minimal discomfort in the groins. She denies any leg or foot pain. Physical Exam Constitutional: WD/WN, vitals as above Respiratory: normal respiratory effort; no respiratory distress Cardiovascular: Rate/Rhythm: regular rate and regular rhythm Vessels: dorsalis pedis pulses present (Palpable DP pulses in both feet) Extremities: normal capillary refill Gastrointestinal (Abdomen): Inspection/Auscultation: abdomen normal to inspection; abdomen not distended Percussion/Palpation: abdomen soft Skin: + incision (Prevena dressings are in place) Neurologic: CN's II-XI intact bilaterally and moves all extremities Psychiatric: Orientation: alert and oriented x 3 Results & Data Vital Signs (Past 12 Hours) Vital Signs Pulse Resp BP Pulse Ox O2 Del Method O2 Flow Rate 11/13/22 11:15 51 L 11/13/22 10:38 51 L 15 93 11/13/22 10:38 140/59 L 11/13/22 10:00 55 L 12 97 11/13/22 10:00 111/58 L 11/13/22 09:00 59 L 11 L 96 11/13/22 09:00 130/66 11/13/22 08:00 65 15 88 L 11/13/22 08:00 121/79 11/13/22 07:00 50 L 15 97 11/13/22 07:00 131/67 11/13/22 06:45 50 L 10 L 99 11/13/22 08:31 Nasal Cannula 2 11/13/22 08:00 50 L 11/13/22 06:00 50 L 10 L 98 11/13/22 06:00 129/68 11/13/22 05:00 51 L 10 L 97 11/13/22 05:00 115/65 11/13/22 04:00 50 L 11 L 94 11/13/22 04:00 116/57 L 11/13/22 03:00 53 L 11 L 97 11/13/22 03:00 108/56 L 11/13/22 02:06 53 L 11 L 99 11/13/22 01:00 113 H 17 95 11/13/22 01:00 126/71 11/13/22 01:34 52 L
[2022-11-13] MEDS: DULoxetine HCL 30 MG CAP PO SCH (21:18)
[2022-11-13] MEDS: GABAPENTIN 100 MG CAP PO SCH (21:18)
[2022-11-13] MEDS: FLUTICASONE/VILANTEROL 100/25MCG 14 PUFFS/INHALER INH SCH (21:19)
[2022-11-13] MEDS: oxyCODONE/ACETAMINOPHEN 5mg/325mg TAB PO PRN (23:00)
[2022-11-14] MEDS: METOPROLOL TARTRATE 25 MG TAB PO SCH (07:38)
[2022-11-14] MEDS: PRASugrel TAB 10 MG TAB PO SCH (07:39)
[2022-11-14] MEDS: oxyCODONE/ACETAMINOPHEN 5mg/325mg TAB PO PRN (07:43)
--- NOTE | 2022-11-14 11:24 | Surgery Progress Note ---
Date of Service November 14, 2022 Assessment & Plan (1) Aortoiliac occlusive disease: Plan: This patient is postoperative day 2 for aortic stenting left iliac stenting and a femorofemoral bypass left to right. She is doing exceptionally well. She has has no discomfort in either foot and good pulses in her feet. She is able to ambulate. Will D/C today. Admission and Anticipated Discharge Date Admission Date: November 12, 2022 Subjective This patient is awake alert. She is in no apparent distress. She claims her feet feel much better. She ambulated in the tai. She does complain of incisional discomfort relieved with po meds. Physical Exam Constitutional: WD/WN, vitals as above Respiratory: normal respiratory effort; no respiratory distress Cardiovascular: Rate/Rhythm: regular rate and regular rhythm Vessels: dorsalis pedis pulses present (Palpable DP pulses in both feet) Extremities: normal capillary refill Skin: + incision (Prevena dressings are in place) Neurologic: CN's II-XI intact bilaterally and moves all extremities Psychiatric: Orientation: alert and oriented x 3 Results & Data Vital Signs (Past 12 Hours) Vital Signs Temp Pulse Resp BP Pulse Ox O2 Del Method 11/14/22 07:21 36.5 C 63 16 138/68 94 Room Air
--- NOTE | 2022-11-14 11:33 | Discharge Summary ---
Date of Service November 14, 2022 Admission HPI Per Admitting Provider Reason for Consultation Right upper extremity vascular occlusive disease and lower extremity right leg claudication History of Present Illness I the pleasure of seeing Devora today for evaluation of her arterial system. As you know she is a 76-year-old female who has complaints of both upper and lower extremities. She claims that her right hand occasionally gets purplish in the fingers. This has not happened over the last few weeks. She denies any ulcerations of the right hand. She is right-handed. She denies any effort discomfort with use of the right upper extremity. She has had episodes where she gets tingly, cold, and passes out. This also has not occurred recently. She claims that she did go on antibiotics for mastoiditis which helped with this problem. She does claim that her pulses in her right arm have been difficult to feel for extended period of time. She denies any symptoms consistent with cerebrovascular accidents. She does also complain of right leg pain. This occurs both at rest and while walking however the pain she gets when walking is different than the one at rest. She is claims she does not walk far distances before her lower extremity hurts. She does point to the calf is being replaced this starts but involves the whole leg. She denies any ulcerations of the lower extremities. She denies any pain in her left lower extremity. She does have a chronic history of smoking and continues to smoke. She does have a history of hypertension and coronary artery disease with requiring 3 stents. Review of Systems 10 systems were reviewed. Positive findings included occasional chest pain and irregular heartbeat COPD joint swelling loss of appetite and diarrhea and urinary incontinence. She does have a history of 3 coronary stents in the past. She also has a history of mild carotid artery occlusive disease. Physical Exam Vitals & Measurements HR: 72 (Monitored) BP: 122/76 SpO2: 72% WT: 62.800 kg (Dosing) WT: 62.8 kg Input and Output - Last 24 hours (Last 8 hours) No I/O Data Found: On exam the patient is awake alert and oriented x3. She is in no apparent distress. Her blood pressure is 158/78 on the left and 122/76 on the right arm. Radials are +2 on the left and nonpalpable on the right. Capillary refill is equal in both upper extremities. There is no ulcerations of the hand and fingers of either upper extremity. I cannot appreciate any carotid bruits on exam. Her heart had a regular rate and rhythm. Abdominal exam was benign without any abnormal dilatation of the aorta. Femoral pulses 1+ on the right 2+ on the left. The left pedal pulses are palpable and normal. Right pedal pulse palpable. Neurologic exam is normal to motor and sensory function. Diagnostic Results CT angiogram which was done in June showed mild stenosis of the brachiocephalic trunk as well as the right common carotid artery. Assessment/Plan Claudication, intermittent At this point is recommended stenting of both the aortic lesion and iliac lesion. Required placed kissing stents in both iliac arteries at the origin of the right, asymptomatic. She understands the risks options and benefits of this approach and agrees with this procedure. We will keep you informed as to her results. Thank you very much for letting us participate in the care of this patient. Sincerely, Isi Santos MD Admission Exam Per Admitting Provider On exam the patient is awake alert and oriented x3. She is in no apparent distress. Her blood pressure is 158/78 on the left and 122/76 on the right arm. Radials are +2 on the left and nonpalpable on the right. Capillary refill is equal in both upper extremities. There is no ulcerations of the hand and fingers of either upper extremity. I cannot appreciate any carotid bruits on exam. Her heart had a regular rate and rhythm. Abdominal exam was benign without any abnormal dilatation of the aorta. Femoral pulses 1+ on the right 2+ on the left. The left pedal pulses are palpable and normal. Right pedal pulse palpable. Neurologic exam is normal to motor and sensory function. Principal Diagnosis Aortoiliac occlusive disease Discharge Exam Constitutional WD/WN, vitals as above Respiratory normal respiratory effort; no respiratory distress Cardiovascular Rate/Rhythm: regular rate and regular rhythm Vessels: dorsalis pedis pulses present (Palpable DP pulses in both feet) Extremities: normal capillary refill Skin + incision (Prevena dressings are in place) Neurologic CN's II-XI intact bilaterally and moves all extremities Psychiatric Orientation: alert and oriented x 3 Discharge Data Allergies Allergy/AdvReac Type Severity Reaction Status Date / Time aspirin Allergy Intermediate Hives Verified 11/12/22 08:21 clopidogrel [From Plavix] Allergy Intermediate Rash Verified 11/12/22 08:21 codeine Allergy Intermediate hyperventilate, Verified 11/12/22 08:21 "cant get my breath" Consultations 11/12/22 16:52 Consult Process Worker Routine Procedures Performed Operation Date: 11/12/22 10:15 Actual Procedures p Aortogram, Aortic and Illiac Stenting(Bilateral) - Alex Santos MD s Femoral to Femoral Graft(Bilateral) - Alex Santos MD Ordered Studies 11/12/22 07:15 EV Angio Abdomen Aorta Routine US EV guide vascular access Routine Hospital Course (1) Aortoiliac occlusive disease: This patient is postoperative day 2 for aortic stenting left iliac stenting and a femorofemoral bypass left to right. She is doing exceptionally well. She has has no discomfort in either foot and good pulses in her feet. She is able to ambulate. Will D/C today. Total Time Total Time Spent Total Time Spent (In Minutes): 0 Discharge Plan Discharge Items Patient Disposition: Home - Self-Care Reason For Visit: Abdominal Aortic and Iliac Stenosis Discharge Diagnosis: Aortoiliac occlusive disease Activity: Per Instructions section Non-emergency contact: Surgeon Call non-emergency contact if: your temperature is above 101.5, your wound has increased redness, your wound has increased drainage and your wound pain has increased Follow-up/Referrals: Grant Mcfadden [Primary Care Provider] - Diet: Heart Healthy Addtl Attending Provider Instructions: ACTIVITY RECOMMENDATIONS: Leave prevena dressing in place till they loose their suction. Then remove and throw everything away. May shower after that but do not soak wounds under water. SPECIAL CARE INSTRUCTIONS: Call your doctor if: * Temperature above 101 degrees * Pain not relieved by pain medicine ordered * There is increased drainage or redness from any incision * You have any unanswered questions or concerns. Call [phone] to schedule a follow up appointment if one not already scheduled. Pending Studies at Discharge: No Stand-Alone Forms: [employer], Smoking Cessation Medications and DC Order Prescriptions: New oxycodone-acetaminophen [Percocet] 5-325 mg tablet 1 tab PO Q6H PRN (Reason: pain) Qty: 30 0RF Continued gabapentin 100 mg Capsule 200 mg PO HS metoprolol tartrate 25 mg Tablet 25 mg PO HS metoprolol tartrate 25 mg Tablet 12.5 mg PO QAM duloxetine [Cymbalta] 30 mg Capsule,Delayed Release(Dr/Ec) 30 mg PO QPM prasugrel [Effient] 10 mg Tablet 10 mg PO QAM fluticasone furoate-vilanterol [Breo Ellipta] 100-25 mcg/dose Blister With Device 1 inh INHALATION QPM Repatha SureClick 140 mg/mL Pen Injector 140 mg SUBCUT UD Patient Comments: every 2 wks,next due 11/16/22 Rx Instructions: q2 wks Discharge Orders: Discharge Order (Routine); Ordered 11/14/22 Ordered By: Alex Santos Admission Data Admit Date/Time: 11/12/22 08:13 Attending Provider: Alex Santos Admit Provider: Alex Santos Primary Care Provider: Grant Mcfadden Other Providers: Lopez Freeman ; Gigi Olvera ; Jose Alberto Hamilton ; Jose Leonard ; Shyam Poole ; Grant Black ; Corina Limon ; Josh Owusu ; Marlin Casillas ; Ricarda Caceres ; Kevin Sandoval
--- NOTE | 2022-11-26 15:21 | Operative Report ---
Post Operative Report Pre & Post Diagnosis Operation Date: 11/12/22 10:15 Pre-Op Diagnosis: Abdominal Aortic and Iliac Stenosis Post-Op Diagnosis: Abdominal Aortic and Iliac Stenosis I identified the patient and participated in the time-out.: Yes Procedure Operation Date: 11/12/22 10:15 Actual Procedures p Aortogram, Aortic and Illiac Stenting(Bilateral) - Alex Santos MD s Femoral to Femoral Graft(Bilateral) - Alex Santos MD Surgeon Alex Santos MD Chef Head AlexisPAC Estimated Blood Loss 150 Findings Consistent with Post-Op Diagnosis Specimens none Anesthesia Type General Complications none Disposition Accompanied Patient To Recovery: No Disposition: Recovery Room Indications This is a 76-year-old female who had severe stenosis of the distal aorta as well as a focal occlusion of the right common iliac artery. An attempt at stenting was recommended. I have discussed the risks options and benefits of the procedure with the patient. The patient understands the risks options and benefits and agrees to the procedure. Description of Procedure The patient was taken to the angiogram suite and placed supine position. After general anesthesia was accomplished the abdomen and groins were prepped and draped in a sterile manner. A puncture was then made in the right common femoral artery after ultrasound localization. Ultrasound showed the artery patent with mild plaque. Using the ultrasound the right common femoral artery was punctured. Manta sheath was used to measure the distance from the skin to the puncture site. 8 Nepalese sheath was then inserted. Same procedure was then on the left side. Once they were inserted a pigtail catheter was inserted through the left groin up to the suprarenal aorta. Aortography showed a severe stenosis of the distal aorta as well as the apparent occlusion of the common iliac artery on the right side and moderate stenosis on the left. We then attempted to try to cannulate from the right side. This was unsuccessful we then inserted the rim cathet we then used the Q50 balloon the felt further dilate the shaft of the graft. At this point it was decided to do a femorofemoral bypass. er and a wire from the left side and was able to cannulate the right common iliac artery. A snare was then inserted through the right side and the wire was snared and brought out from the right groin. Kumpe catheters were then used in the wire from both ends. There is then passed up into the abdominal aorta. Using the Kumpe catheters wires were exchanged for Nazario wires. We then exchanged the sheath on the left side to a 12 Nepalese dry seal. Through this we inserted a 16 x 14 x 7 excluder device. This was then deployed just below the renal arteries. Both the ipsilateral and the contralateral limbs were above the bifurcation. We then attempted to cannulate the contralateral limb from the right groin. It appeared to have cannulated the graft and Kumpe catheter was inserted and spun easily. We then inserted an 8 x 39 on the left side an 8 x 59 VBX stents from the right side. These were deployed. Apparently on the arteriogram even after the Kumpe did spin it was thought that the Kumpe catheter was actually outside the graft. There is no flow seen going through the contralateral limb. We then used the Q50 balloon to further dilate the shaft of the graft. At this point it was decided to do a femorofemoral bypass. The final arteriogram showed good flow through the graft with no residual stenosis to the left side. There is no flow into the right common iliac artery over the right limb of the graft. We then injected the right sheath which showed the common iliac and external iliac arteries to be patent. The proximal common iliac artery was occluded at the level of the stent graft. Cutdowns were then done in both groins. The common femoral arteries were exposed on both sides. Once they were exposed the common femoral arteries were clamped on both sides and the sheaths were removed. An 8 mm propatent graft which was ringed was then passed from 1 incision to the other suprapubically in the subcutaneous tunnel. The right common femoral artery was addressed first. Arteriotomy was performed. End-to-side anastomosis was accomplished between the beveled end of the propatent graft in the right common femoral artery using a 5-0 Prolene suture in usual vascular fascia. Once this was completed the clamp was placed on the graft and the clamps of the common femoral artery removed. On the left side arteriotomy was then extended on the left common femoral artery. The femorofemoral bypass was then trimmed and beveled to appropriate length. In the side anastomosis was accomplished between the left common femoral artery and the left cross femoral graft using a running 5-0 Prolene suture in usual vascular fashion. Prior to completing the closure backbleeding and forward bleeding was allowed to occur. Final few sutures were then placed and securely tied. Clamps were removed. Excellent flow was seen through the femorofemoral bypass as well as the superficial femoral artery and profundofemoral arteries. After hemostasis was then obtained of the wounds. Once adequate hemostasis was noted the wounds were closed in usual fashion using running 2-0 Vicryl suture for the femoral sheath and a 3-0 Vicryl for subcutaneous layer. Orient were used for the skin. Prevena dressings were placed on both groins.The patient left the operation room in satisfactory condition and tolerated the procedure well. All needle and sponge counts were correct at the end of the procedure. Ivana Ribeiro Pac assisted due to lack of resident availability and was necessary for positioning, draping, retraction, wound closure deep layers, subcutaneous tissue, and skin closure and was necessary for assisting with the case. I attest to the content of the Intraoperative Record and any orders documented therein. Any exceptions are noted below.
--- NOTE | 2022-11-27 08:16 | Coding Query ---
To promote full compliance with coding requirements relating to patient care, provider participation is requested in all cases of encapsulator uncertainty. Please assist us with the question(s) below: Coding Question(s): The diagnosis below was documented in the Critical Care Progress Note on 11/13, then subsequently fell off all further documentation. Please indicate if it is still a possible diagnosis or ruled out. Physician's Response(s): SLIGHT HYPONATREMIA (documented on the 11/13 Critical Care Progress Note as, "Renal: Slight hyponatremia and will follow") (X ) Diagnosed and POA ( ) Diagnosed and not POA ( ) Ruled out ( ) Other (please specify) MTDD
== END 2022-11-14 13:10 | disposition home or self-care (01) | DRG 253 ==
LOC: ASU 07:39 → 1E 08:13 → 3N 11-13 14:33